=== PATIENT | female | born 1990 | race Caucasian/White ===

== ENCOUNTER 2017-07-23 22:58 | Emergency (ER) | payer SELFPAY ==
[~2017-07-23] VITALS: Ht 157.5 cm; Wt 49.0 kg
[2017-07-24 04:21] LABS: BILIRUBIN,URINE NEGATIVE (NEGATIVE); KETONES,URINE 1+ (NEGATIVE); LEUKOCYTE ESTERASE ,URINE TRACE (NEGATIVE); NITRITE,URINE NEGATIVE (NEGATIVE); PROTEIN,URINE DIPSTICK NEGATIVE (NEGATIVE); URINE UROBILINOGEN 0.2 mg/dL (0.2 - 1)
[2017-07-24 04:23] LABS: CLARITY,URINE CLEAR (CLEAR); COLOR,URINE YELLOW (YELLOW)
[2017-07-24 04:24] LABS: PREGNANCY TEST, URINE NEGATIVE (NEGATIVE)
[2017-07-24 04:30] LABS: BACTERIA,URINE MANY /HPF; EPITHELIAL CELLS,URINE FEW /LPF; RBC,URINE 0-5 /HPF (0-5)
[2017-07-24] MEDS ORDERED: SODIUM CHLORIDE 0.9% 1000ML 1,000 ML IV STA (04:53)
[2017-07-24] MEDS ORDERED: ONDANSETRON HCL INJ 2 MG/ML VIAL IV STA (04:53)
[2017-07-24] MEDS ORDERED: MORPHINE SULFATE 2 MG/ML SYR IV STA (04:53)
[2017-07-24] MEDS ORDERED: MORPHINE SULFATE 5 MG/ML VIAL ONE (05:13)
[2017-07-24 05:15] LABS: BASOPHILS % 0.4 % (0.0-1.0); EOSINOPHILS # (AUTO) 0.2 (0.0-0.4); EOSINOPHILS % 1.9 % (0.0-6.0); HEMATOCRIT 37.1 % (34.2-44.1); HEMOGLOBIN 12.5 g/dL (12.0-16.0); LYMPHOCYTES # (AUTO) 3.9 (1.0-3.2); LYMPHOCYTES % 34.6 % (18.0-39.1); MEAN CORPUSCULAR HEMOGLOBIN 30.2 pg (28-32); MEAN CORPUSCULAR HGB CONC 33.7 g/dL (31-35); MEAN CORPUSCULAR VOLUME 89.6 fL (81-99); MONOCYTES # (AUTO) 0.8 (0.2-0.8); MONOCYTES % 6.7 % (4.4-11.3); NEUTROPHILS # (AUTO) 6.2 (2.1-6.9); NEUTROPHILS % 56.1 % (38.7-80.0); PLATELET COUNT 209 x10e3/uL (140-360); RED BLOOD COUNT 4.14 x10e6/uL (3.6-5.1); RED CELL DISTRIBUTION WIDTH 12.8 % (11.7-14.4)
[2017-07-24 05:36] LABS: ALANINE AMINOTRANSFERASE 8 IU/L (0-55); ALBUMIN/GLOBULIN RATIO 1.3 (0.8-2.0); ALKALINE PHOSPHATASE 59 IU/L (40-150); AMYLASE 61 U/L (25-125); ANION GAP 10.5 mmol/L (8-16); BLOOD UREA NITROGEN 16 mg/dL (7-26); BUN/CREATININE RATIO 20 (6-25); CALCIUM 8.9 mg/dL (8.4-10.2); CARBON DIOXIDE 24 mmol/L (22-29); CHLORIDE 106 mmol/L (98-107); CREATININE, SERUM 0.81 mg/dL (0.57-1.11); EST GLOMERULAR FILTRATION RATE > 60 ML/MIN (60-); GLUCOSE 85 mg/dL (74-118); LIPASE 12 U/L (8-78); POTASSIUM 3.5 mmol/L (3.5-5.1); SODIUM 137 mmol/L (136-145)
[2017-07-24] MEDS ORDERED: SODIUM CHLORIDE 0.9% 50ML 50 ML ONE (06:13)
[2017-07-24] MEDS ORDERED: IOPAMIDOL 370 MG/ML 200 ML INFUS..BTL INJ ONE (06:13)
--- NOTE | 2017-07-24 07:02 | Diagnostic Imaging Report ---
EXAM: CT Abdomen and Pelvis WITH contrast INDICATION: Right lower quadrant abdominal pain COMPARISON: None. TECHNIQUE: Abdomen and pelvis were scanned utilizing a multidetector helical scanner from the lung base to the pubic symphysis after administration of IV contrast. Coronal and sagittal reformations were obtained. Routine protocol was performed. Scan was performed when during portal venous phase. IV CONTRAST: 100 mL of Isovue-370 ORAL CONTRAST: None RADIATION DOSE: Total DLP: 157.21 mGy*cm Estimated effective dose: (DLP x 0.015 x size factor) mSv COMPLICATIONS: None FINDINGS: LINES and TUBES: None. LOWER THORAX: Bilateral breast implants. HEPATOBILIARY: No focal hepatic lesions. No biliary ductal dilation. GALLBLADDER: No radio-opaque stones or sludge. No wall thickening. SPLEEN: No splenomegaly. PANCREAS: No focal masses or ductal dilatation. ADRENALS: No adrenal nodules KIDNEYS/URETERS: Kidneys enhance symmetrically. No hydronephrosis. No cystic or solid mass lesions. No stones. GI TRACT: No abnormal distention, wall thickening, or evidence of bowel obstruction. There are diverticula within the colon without evidence of diverticulitis. Appendix is normal. PELVIC ORGANS/BLADDER: Physiologic follicles in the ovaries. LYMPH NODES: No lymphadenopathy. VESSELS: Unremarkable. PERITONEUM / RETROPERITONEUM: Small amount of free fluid in the abdomen. This finding is most likely physiologic in a premenopausal woman BONES: Unremarkable. SOFT TISSUES: Unremarkable. IMPRESSION: 1. No evidence of acute intra-abdominal or pelvic abnormality. Signed by: Dr. Luiz Garnica M.D. on 07/24/2017 6:58 AM
== END 2017-07-24 08:21 | disposition home or self-care (01) ==
LOC: ER 22:58
DX: R10.32 Left lower quadrant pain (principal); N30.90 Cystitis, unspecified without hematuria
CPT/HCPCS: 36415; 74177; 80053; 81001; 81025; 82150; 83690; 83735; 85025; 87086; 87186; 96360; 96374; 96376; 99284; J2270; J2405; J7030; Q9967